=== PATIENT | female | born 1990 | race Two or more races ===

== ENCOUNTER 2018-07-26 09:40 | Inpatient (IN) | payer MEDICAID ==
[~2018-07-26] VITALS: Ht 162.6 cm; Wt 130.7 kg
[2018-07-26 09:43] VITALS: Ht 162.6 cm; Wt 130.7 kg
[2018-07-26 10:34] LABS: PLATELET COUNT 283 x10^3mcL (130-400); RED CELL DISTRIBUTION WIDTH 13.4 % (11.5-14.5)
[2018-07-26 10:46] LABS: CALCIUM 8.4 mg/dL (8.5-10.1); CARBON DIOXIDE 23.7 mmol/L (21-32); CHLORIDE SERUM 104 mmol/L (98-107); CREATININE SERUM 0.8 mg/dL (0.6-1.0); GFR1 > 60 mL/min; GLUCOSE SERUM 106 mg/dL (74-106); SODIUM SERUM 138 mmol/L (136-145)
[2018-07-26 10:51] LABS: ALBUMIN 3.5 g/dL (3.4-5.0); ALKALINE PHOSPHATASE 63 U/L (46-116); ALT/SGPT 28 U/L (14-59); AST/SGOT 14 U/L (15-37); BILIRUBIN TOTAL 0.18 mg/dL (0.20-1.00); CHOLESTEROL 99 mg/dL (<200); CHOLESTEROL/HDL RATIO 2.1; HDL CHOLESTEROL 48 mg/dL (40-60); LIPASE 135 IU/L (73-393); TOTAL PROTEIN, SERUM 7.5 g/dL (6.4-8.2); TRIGLYCERIDES 41 mg/dL (<150)
[2018-07-26 11:05] LABS: FREE T4 0.96 ng/dL (0.76-1.46); FREE THYROXINE INDEX 2.7 ug/dL (1.4-4.5); T4(THYROXINE) 7.5 ug/dL (4.7-13.3)
[2018-07-26 11:09] LABS: T3 TOTAL 1.17 ng/mL
[2018-07-26 13:04] LABS: UA SPECIFIC GRAVITY 1.025 (1.005-1.035); microscopic required? YES; urine erythrocyte NEGATIVE (NEGATIVE)
[2018-07-26 15:12] LABS: MAGNESIUM 2.3 mg/dL (1.8-2.4); PHOSPHOROUS 2.5 mg/dL (2.5-4.9)
[2018-07-26 15:55] VITALS: BP 138/80
[2018-07-26 17:37] VITALS: BP 126/48
[2018-07-26 21:22] VITALS: BP 115/54
[2018-07-27 03:26] LABS: BASOPHIL % 0.5 % (0-2); PLATELET COUNT 265 x10^3mcL (130-400); RED CELL DISTRIBUTION WIDTH 13.4 % (11.5-14.5)
[2018-07-27 04:02] LABS: CALCIUM 8.5 mg/dL (8.5-10.1); CARBON DIOXIDE 25.2 mmol/L (21-32); CHLORIDE SERUM 106 mmol/L (98-107); CREATININE SERUM 0.8 mg/dL (0.6-1.0); GFR1 > 60 mL/min; GLUCOSE SERUM 102 mg/dL (74-106); MAGNESIUM 2.2 mg/dL (1.8-2.4); PHOSPHOROUS 3.2 mg/dL (2.5-4.9); POTASSIUM SERUM 3.9 mmol/L (3.5-5.1); SODIUM SERUM 139 mmol/L (136-145)
[2018-07-27 04:55] VITALS: BP 106/64
[2018-07-27 07:55] VITALS: BP 140/90
[2018-07-27 14:25] VITALS: BP 123/63
[2018-07-27 17:30] VITALS: BP 133/84
[2018-07-27 20:26] VITALS: BP 141/77
[2018-07-27 21:56] VITALS: BP 141/77
== END 2018-07-27 23:59 | disposition short-term general hospital (02) | DRG 198 ==
LOC: ED 09:40 → DU 13:18 → ED 13:18 → DU 13:19 → EDBEDREQTM 14:45 → EDBEDREQ 14:46 → DU 15:50
PROVIDERS: Specialist; ADMIT Family Medicine
DX: I20.1 Angina pectoris with documented spasm (principal); E66.01 Morbid (severe) obesity due to excess calories; G90.9 Disorder of the autonomic nervous system, unspecified; F41.1 Generalized anxiety disorder; Z68.42 Body mass index [BMI] 45.0-49.9, adult; N39.0 Urinary tract infection, site not specified; R53.1 Weakness; F12.10 Cannabis abuse, uncomplicated; G89.29 Other chronic pain; M54.9 Dorsalgia, unspecified; R73.03 Prediabetes; G47.33 Obstructive sleep apnea (adult) (pediatric); F17.210 Nicotine dependence, cigarettes, uncomplicated
CPT/HCPCS: 83880; 84439; A9500; A9577; J1885; J2270; J2405; J2785; J7030; Q0092